=== PATIENT | female | born 1965 | race Caucasian/White ===

== ENCOUNTER 2021-11-29 15:36 | Emergency (ER) | payer OTHER, SELFPAY ==
--- NOTE | ~2021-11-29 | XR_ITS ---
EXAMINATION: XR FOOT, RIGHT CLINICAL INFORMATION: Heel pain. COMPARISON: None TECHNIQUE: AP, lateral, and oblique views of the right foot. FINDINGS: There is a small calcaneal heel enthesophyte. No visible acute fracture, dislocation or subluxation seen. The ankle mortise and subtalar joints are normal. The soft tissues are normal. XR/XR foot RT min 3V IMPRESSION: Small calcaneal heel enthesophyte. No visible acute fracture, dislocation or soft tissue abnormality.
[2021-11-29 15:40] VITALS: BP 130/64; PULSE 75; RESP 18; TEMP 36.4; O2SAT 97; BMI 38.7
--- NOTE | 2021-11-29 16:24 | ED.GENADULT ---
HPI - General Adult General Chief complaint: Recheck/Abnormal Lab/Rx Stated complaint: glass in right foot Time Seen by Provider: 11/29/21 16:11 Source: patient Mode of arrival: ambulatory Limitations: no limitations History of Present Illness HPI narrative: Patient is a 56 year old female presenting to the emergency department today with possible retained glass in her right heel. Patient states that her daughter broke a crock pot last month and she stepped on a glass piece. Patient states that she went and had a pedicure and they were able to get most of it out but she states that she can feel some in her heel still. Patient denies any dizziness, lightheadedness, abdominal pain, nausea, vomiting, fever, chills, blurry vision, double vision, loss of vision, chest pain, difficulty breathing, shortness of breath, back pain, night sweats, pain with urination, increased urinary frequency, increased urinary urgency, blood in her urine or stool, syncope or a near syncopal episode, bowel incontinence, bladder incontinence, bowel retention, bladder retention, or any other complaints at this time. Onset (ago): month(s) (1) Location: right and lower extremity (foot) Radiation: non-radiation Severity: mild Severity scale (1-10): 2 Quality: aching Pain Consistency: intermittent and other (only when walking on it) Relieving factors: none Exacerbating factors: movement Associated symptoms: denies other symptoms Treatments prior to arrival: none Related Data Allergies Allergy/AdvReac Type Severity Reaction Status Date / Time erythromycin base Allergy Unknown UNKNOWN Unverified 12/08/19 16:22 [ERYTHROMYCIN BASE] Review of Systems Constitutional: Constitutional: Reports no additional constitutional complaints, Denies chills, Denies fever(s) and Denies night sweats Eyes: Eyes: Reports no additional eye complaints, Denies blurry vision, Denies change in vision, Denies diplopia, Denies eye discharge, Denies loss of vision and Denies eye pain ENT: Denies dizziness Cardiovascular: Cardiovascular: Reports no additional cardiovascular complaints, Denies chest pain, Denies lightheadedness, Denies Loss of Consciousness and Denies dyspnea Respiratory: Respiratory: Reports no additional respiratory complaints and Denies dyspnea Gastrointestinal: Gastrointestinal: Reports no additional gastrointestinal complaints, Denies abdominal pain, Denies melena, Denies hematochezia, Denies change in bowel habits and Denies change in stool character Genitourinary: Genitourinary: Denies hematuria, Denies urinary frequency, Denies dysuria, Denies urinary incontinence, Denies urinary hesitancy and Denies urinary urgency Musculoskeletal: Musculoskeletal: Reports no additional musculoskeletal complaints, Denies numbness and Denies tingling Comments: right foot pain Neurologic: Denies dizziness, Denies loss of vision, Denies numbness and Denies tingling Psychiatric: Psychiatric: Reports no additional psychiatric complaints Endocrine: Endocrine: Reports no additional endocrine complaints Hematologic/Lymphatic: Hematologic/Lymphatic: Reports no additional hematologic/lymphatic complaints Allergic/Immunologic: Allergic/Immunologic: Reports no additional allergic/immunologic complaints PMFSH Past Medical History Attestation statement: The following information was validated with the patient. Source: old records reviewed Physical Exam ED Vital Signs: Vital Signs - 24 hr 11/29/21 15:40 Temperature 97.6 F Pulse Rate 75 Respiratory Rate 18 Blood Pressure 130/64 Pulse Oximetry 97 Oxygen Delivery Method Room Air BMI result Body Mass Index 38.7 Const General: cooperative, no acute distress, alert and awake Nutritional Appearance: well nourished Orientation/consciousness: patient oriented x3 Limitations: no limitations HENMT Head: Yes normal to inspection and Yes atraumatic Ears: hearing grossly normal bilaterally and external ears normal General nose exam: Normal external nose present, no nasal discharge noted and no epistaxis Face and sinus: Yes normal facial exam, No abrasion and No laceration Mouth: Normal oral and palatal mucosa present, no drooling and no muffled voice Eyes General: appearance normal, both eyes and all related structures Periorbital: periorbital findings normal Eyelids: Yes eyelids normal Conjunctivae: conjunctivae normal Pupils: Equal, round and reactive pupils present EOM: EOMs intact bilaterally Neck Neck: Yes normal visual inspection, Yes full ROM and Yes no lymphadenopathy Chest Chest palpation & inspection: normal inspection of the chest Resp Effort & Inspection: normal respiratory effort and able to speak in complete sentences Auscultation: clear to auscultation bilaterally Cardio Rate: regular rate Rhythm: regular rhythm GI Inspection: Yes normal to inspection Neuro General: patient oriented x3 and moves all extremities Cranial nerves: Yes Equal, round and reactive pupils present Cognition (Neuro): normal cognition Motor exam (neuro): 5/5 motor strength present throughout Sensory Exam: Normal double simultaneous stimulation for sensation Coordination: [id number] test normal Extrem General: Yes normal to inspection, Yes full ROM and Yes capillary refill normal Psych Appearance: grossly normal Mental Status: mental status grossly normal Affect: normal affect Attitude: cooperative Thought process: Normal thought process present Thought content: Normal thought content present Insight: Good insight present (Psych) Medical Decision Making MDM Narrative Medical decision making narrative: Patient is a 56 year old female presenting to the emergency department today with possible retained glass to her right heel. Patient's physical exam was unremarkable. Patient's right foot x-ray showed no acute process, no retained foreign body. I explained my physical exam findings as well as all test results to the patient. I answered all questions asked by the patient. I stressed the importance of the patient taking her medication as prescribed. I stressed the importance of the patient following up with her primary care provider and a general surgeon. I stressed the importance of the patient returning to the emergency department immediately if her symptoms were to worsen or if she were to develop any dizziness, shortness of breath, difficulty breathing, chest pain, blurry vision, loss of vision, nausea, vomiting, abdominal pain, fever, chills, back pain, or any other complaints. Patient verbalized agreement and understanding with this treatment plan and discharge. Medical Records Medical records reviewed: Yes I reviewed the patient's medical records. Imaging Data Right foot x-ray: Attestation: I personally reviewed and interpreted this imaging study as follows: My impression: No acute process. Radiologist's impression: EXAMINATION: XR FOOT, RIGHT CLINICAL INFORMATION: Heel pain.? COMPARISON: None? TECHNIQUE: AP, lateral, and oblique views of the right foot. FINDINGS: There is a small calcaneal heel enthesophyte. No visible acute fracture, dislocation or subluxation seen. The ankle mortise and subtalar joints are normal. The soft tissues are normal.? XR/XR foot RT min 3V IMPRESSION: Small calcaneal heel enthesophyte. No visible acute fracture, dislocation or soft tissue abnormality. Dictated By: Jas Kerr MD Signed By: Electronically signed by Jas Kerr MD 11/29/21 8470 Discharge Plan Discharge Clinical Impression: Foreign body (FB) in soft tissue Patient Disposition: Home, Self-Care Instructions: Soft Tissue Foreign Body (ED) Additional Instructions: Follow up with your primary care provider and a general surgeon. Return to the emergency department immediately if your symptoms worsen or if you develop any dizziness, shortness of breath, difficulty breathing, chest pain, blurry vision, loss of vision, nausea, vomiting, abdominal pain, fever, chills, back pain, or any other complaints. [place]: [facility] [place] [facility] [place] Group] (Call to establish and follow up with a general surgeon. ) Tariq Lopes MD [Primary Care Provider] - Print Language: Macedonian
== END 2021-11-29 16:50 | disposition home or self-care (01) ==
LOC: HO.ED 16:49
PROVIDERS: Emergency Provider Internal Medicine; PCP Internal Medicine
DX: M79.671 Pain in right foot (principal)
CPT/HCPCS: 73630; 99282; 99283

== ENCOUNTER 2022-01-13 20:07 | Emergency (ER) | payer OTHER, SELFPAY ==
--- NOTE | 2022-01-13 | ECG_ITS ---
Test Reason : ABNORMAL LABS Blood Pressure : / mmHG Vent. Rate : 068 BPM Atrial Rate : 068 BPM P-R Int : 156 ms QRS Dur : 076 ms QT Int : 400 ms P-R-T Axes : 034 007 029 degrees QTc Int : 425 ms Normal sinus rhythm Normal ECG When compared with ECG of 04-MAR-2019 17:53, No significant change was found Referred By: Generic ED Physician Electronically Signed By:MARYANN VEGA MD
[2022-01-13 20:58] VITALS: BP 136/88; PULSE 77; RESP 20; TEMP 36.8; O2SAT 97; BMI 38.6
[2022-01-13 21:17] LABS: Hematocrit 38.9 % (37.0-47.0); Hemoglobin 12.7 g/dl (12.0-16.0); Mean Corpuscular HGB Conc 32.6 g/dl (31.0-35.0); Mean Corpuscular Hemoglobin 31.4 pg (27.0-33.0); Mean Corpuscular Volume 96.3 fL (80.0-98.0); Mean Platelet Volume 9.4 fL (9.4-12.3); Platelet Count 327 X10*3/uL (160-400); Red Blood Count 4.04 X10*6/uL (4.20-5.50); White Blood Count 9.7 X10*3/uL (4.8-10.8)
[2022-01-13 21:40] LABS: Alanine Aminotransferase 31 U/L (0-31); Albumin Level 4.6 g/dL (3.5-5.0); Alkaline Phosphatase 114 U/L (39-117); Anion Gap 17 (12-20); Aspartate Amino Transferase 17 U/L (5-31); Bilirubin Total 0.3 mg/dL (0.0-1.0); Blood Urea Nitrogen 23 mg/dL (9-16); Calcium 9.7 mg/dL (8.4-10.2); Carbon Dioxide 26 mmol/L (22-29); Chloride 104 mmol/L (96-108); Estimated Glomerular Filt Rate 54; Glucose Random 101 mg/dL (60-115); Potassium 4.9 mmol/L (3.3-5.1); Sodium 142 mmol/L (135-145); Total Protein 7.6 g/dL (6.5-8.0)
--- NOTE | 2022-01-13 23:28 | ED_ITS ---
HPI - Recheck/Abnormal Lab/Rx General Chief Complaint: Recheck/Abnormal Lab/Rx Stated Complaint: abnormal labs per dr Time Seen by Provider: 01/13/22 23:28 Source: patient Mode of arrival: ambulatory Limitations: no limitations History of Present Illness HPI narrative: 56 yo female with history of Parkinson's disease, spontaneous coronary artery dissection who is presenting for evaluation of elevated potassium on routine blood work today. She was called by her PCP and told her potassium was 6.1 and to come to the hospital for evaluation. She has never had a high potassium before. She is not on spironolocatone or lisinopril. No new meds. She denies muscle cramps or aches. Her PCP exaplined that it may be falsely elevated due to hemolysis but it is important to get it rechecked CAPRICE. complaint: abnormal lab Initial visit (ago): hour(s) Returns today for: called because of abnormal lab/test Description of abnormal result: K 6.1 Symptoms since prior visit: no new symptoms Associated symptoms: none Related Data Allergies Allergy/AdvReac Type Severity Reaction Status Date / Time erythromycin base Allergy Unknown UNKNOWN Unverified 12/08/19 16:22 [ERYTHROMYCIN BASE] Review of Systems Review of Systems: Constitutional: No Fever, No Chills Cardiovascular: No Chest Pain, No SOB Respiratory: No Cough, No Sputum Gastrointestinal: No Nausea, No Vomiting, No Diarrhea, No abdominal Pain Musculoskeletal: No joint pain, No Myalgias Skin: No Skin Lesions, No rash Neuro: No Weakness, No Numbness Psych: + Anxiety/Panic, No Depression PMFSH Social History Social History Advance Directives: No Physical Exam Vital Signs: Vital Signs: Last Vital Signs Temp 98.3 F 01/13/22 20:58 Pulse 77 01/13/22 20:58 Resp 20 01/13/22 20:58 BP 136/88 01/13/22 20:58 Pulse Ox 97 01/13/22 20:58 O2 Del Method 01/13/22 20:58 BMI result Body Mass Index 38.6 Appearance: Alert. Oriented X3. No acute distress. Eyes: Pupils equal, round and reactive to light. ENT: Pharynx normal. Neck: Normal inspection. Neck supple. CVS: Normal heart rate and rhythm. Pulses normal. Respiratory: No respiratory distress. Breath sounds normal. Skin: Skin warm and dry. Normal skin color. Normal skin turgor. No rashes. Extremities: No lower extremity edema. Neuro: Oriented X 3. Slightly shuffling gait. Nonfocal. Course Course Course Narrative: 56-year-old female presents to the ER for evaluation of hyperkalemia on outpatient labs today. Repeat lab work done shows normalization of her pot assium to a level of 4.9. She is not on any medications that would precipitate hyperkalemia. Her renal function is normal. At this time comfortable discharge home with plan to follow back up with her PCP. Results discussed with the patient who agrees with plan.. MDM - Recheck/Abnormal Lab/Rx Lab Data Result diagrams: 01/13/22 21:05 01/13/22 21:05 Labs: Lab Results 01/13/22 01/13/22 Range/Units 21:05 21:05 WBC 9.7 (4.8-10.8) X10*3/uL RBC 4.04 L (4.20-5.50) X10*6/uL Hgb 12.7 (12.0-16.0) g/dl Hct 38.9 (37.0-47.0) % MCV 96.3 (80.0-98.0) fL MCH 31.4 (27.0-33.0) pg MCHC 32.6 (31.0-35.0) g/dl RDW 13.0 (11.0-16.0) % Plt Count 327 (160-400) X10*3/uL MPV 9.4 (9.4-12.3) fL Absolute Nucleated RBC 0.000 (0.0-0.012) X10*3/uL Nucleated RBC % (auto) 0.0 (0.0-0.2) /100WBC Sodium 142 (135-145) mmol/L Potassium 4.9 (3.3-5.1) mmol/L Chloride 104 (96-108) mmol/L Carbon Dioxide 26 (22-29) mmol/L Anion Gap 17 (12-20) BUN 23 H (9-16) mg/dL Creatinine 1.05 (0.5-1.4) mg/dL Estim Creat Clear Calc 67.0 Estimated GFR 54 Random Glucose 101 (60-115) mg/dL Calcium 9.7 (8.4-10.2) mg/dL Total Bilirubin 0.3 (0.0-1.0) mg/dL AST 17 (5-31) U/L ALT 31 (0-31) U/L Alkaline Phosphatase 114 (39-117) U/L Total Protein 7.6 (6.5-8.0) g/dL Albumin 4.6 (3.5-5.0) g/dL Discharge Plan Discharge Clinical Impression: Abnormal laboratory test Patient Disposition: Home, Self-Care Instructions: Normal Exam (ED) Additional Instructions: Your potassium today was normal at 4.9. No need for any treatment or intervention. Follow back up with your doctor as needed. If you develop new or worsening symptoms call 911 or come back to the ER for further evaluation. Interventions: ED Discharge Assessment Last Done: 01/13/22 23:37 Discharge Date/Time: 01/13/22 23:38
--- NOTE | 2022-01-13 23:35 | PC.NURSE ---
pt discharge by provider.
== END 2022-01-13 23:38 | disposition home or self-care (01) ==
PROVIDERS: Emergency Provider Student in an Organized Health Care Education/Training Program; PCP Internal Medicine
DX: Z71.1 Person with feared health complaint in whom no diagnosis is made (principal); R88.8 Abnormal findings in other body fluids and substances
CPT/HCPCS: 36415; 80053; 85027; 93005; 99282; 99283

== ENCOUNTER 2023-10-19 14:15 | Outpatient (AMB) | payer OTHER, SELFPAY ==
--- NOTE | 2023-10-19 15:22 | AM.OFFWIN_ITS ---
Intake Vital Signs 10/19/23 15:24 Height 5 ft 3 in Weight 232 lb BMI 41.1 BP 114/70 Blood Pressure Location Rt radial Position Sitting Pulse 84 Pulse Source Pulse Oximeter Temp 98.1 F Temp Source Oral Pulse Oximetry (%) 96 Oxygen Delivery Method Room Air Intake Visit Reasons: Bee sting left Arm Intake Note: pt c/o white faced hornet sting LT arm Patient Tobacco Use Status: Never used Tobacco Allergies erythromycin base [ERYTHROMYCIN BASE] Allergy (Unknown, Verified 10/19/23 15:23) UNKNOWN Do you need a note to return to daycare/school/sports/work: No HPI Bee sting left Arm HPI Details This note is constructed using voice recognition software. While every effort has been made to ensure accuracy, stretching press operator errors may have been included. The patient is a 58 year old female who presents to the clinic today with bee- sting which occurred yesterday to her left forearm. She reports that she had 1 single sting, and she did treat this with Benadryl as she is allergic to bees, however she developed an area that was red, warm, raised and spreading. She de nies shortness of breath, or any sensation of swelling in her mouth. [facility] [place] Social History Patient Tobacco Use Status: Never used Tobacco Review of Systems Const All systems reviewed & are unremarkable except as noted in HPI and below Physical Exam Vital Signs: Last Vital Signs Temp 98.1 F 10/19/23 15:24 Pulse 84 10/19/23 15:24 BP 114/70 10/19/23 15:24 Pulse Ox 96 10/19/23 15:24 Oxygen Delivery Method Room Air 10/19/23 15:24 BMI result Body Mass Index 41.1 Const General: cooperative, healthy appearing, comfortable, no acute distress and alert Orientation/consciousness: patient oriented x3 Limitations: no limitations HEENT Head: Yes normal to inspection and Yes normocephalic Ears: hearing grossly normal bilaterally General nose exam: Normal external nose present Face and sinus: Yes normal facial exam and Yes sinuses nontender Mouth: Normal oral and palatal mucosa present and tongue normal Teeth and gingiva: dentition normal Throat: Yes posterior oropharynx normal Neck Neck: Yes normal visual inspection, Yes full ROM and Yes no lymphadenopathy Resp Effort & Inspection: normal respiratory effort and able to speak in complete sentences Auscultation: clear to auscultation bilaterally Cardio Jugular venous distension: no JVD Palpation: normal PMI Rate: regular rate Heart sounds: S1 normal heart sound present, S2 normal heart sound present, no click, no gallops, no murmurs and no rubs Skin Other: Left lower arm area of erythema, raised, warm approximately 25 x 15 cm. General skin exam: elasticity normal and turgor normal Neuro General: patient oriented x3 Psych Appearance: grossly normal Mental Status: mental status grossly normal Speech and movement: Normal speech and movement present Affect: normal affect Assessment & Plan Assessment & Plan (1) Bee sting reaction: Code(s): T63.441A - Toxic effect of venom of bees, accidental (unintentional), initial encounter Qualifiers: Encounter type: initial encounter Injury intent: accidental or unintentional Qualified Code(s): T63.441A - Toxic effect of venom of bees, accidental (unintentional), initial encounter Plan: Patient has allergy to bee sting, however no signs of any anaphylaxis present today. Advised patient to follow with PCP for consideration of carrying of EpiPen given her reactions in the past. Continue with Benadryl or antihistamine. (2) Cellulitis: Code(s): L03.90 - Cellulitis, unspecified Qualifiers: Laterality: left Site of cellulitis: extremity Site of cellulitis of extremity: upper extremity Qualified Code(s): L03.114 - Cellulitis of left upper limb Plan: Following bee-sting. Antimicrobial therapy prescribed. Skin pen used outlined area. Advised patient to follow up with any worsening including 2 finger widths spread beyond outlined area, especially after 48 hours of antibiotic therapy, as this could indicate need for IV antibiotics. Plan See above for full details and plan. Medications: New sulfamethoxazole-trimethoprim 800-160 mg (Bactrim DS) 1 tab PO BID 14 tabs 0RF 7 days Coding Level of Care Code Est Pt Level 4 (79839) Diagnoses Bee sting reaction, accidental or unintentional, initial encounter T63.441A Encounter type: initial encounter Injury intent: accidental or unintentional Cellulitis of left upper extremity L03.114 Laterality: left Site of cellulitis: extremity Site of cellulitis of extremity: upper extremity
[2023-10-19 15:24] VITALS: BP 114/70; PULSE 84; TEMP 36.7; O2SAT 96; BMI 41.1
== END 2023-10-19 15:46 | disposition home or self-care (01) ==
PROVIDERS: PCP Internal Medicine; Visit Provider Registered Nurse
DX: T63.441A Toxic effect of venom of bees, accidental (unintentional), initial encounter (principal); L03.114 Cellulitis of left upper limb
CPT/HCPCS: 99214

== ENCOUNTER 2023-10-20 04:46 | Emergency (ER) | payer OTHER, SELFPAY ==
[2023-10-20 04:54] VITALS: BP 110/67; PULSE 77; RESP 20; TEMP 36.6; O2SAT 96; BMI 40.7
[2023-10-20 05:04] VITALS: BP 103/65; PULSE 74; RESP 17; TEMP 36.5; O2SAT 93
--- NOTE | 2023-10-20 05:16 | ED.EXTPRO ---
HPI - Extremity Problem General Chief complaint: Extremity Problem Stated complaint: yellow jacket sting/swelling Time Seen by Provider: 10/20/23 05:02 History of Present Illness HPI Narrative: Patient is a 58-year-old female was stung by a yellow jacket on Thursday. Subsequently the right forearm swelled up. Was seen at urgent Care prescribed Bactrim. Patient took 2 doses of Bactrim and the swelling continue. Now is about an inch off from the margin delineate it earlier. There is no fever no chills no systemic complaints. Patient denies any chest pain. Came to the ED because of worsening symptoms. Patient is not on any immunosuppressants. Related Data Home Medications ?Medication ?Instructions ?Recorded ?Confirmed amlodipine 5 mg tablet 5 mg PO DAILY 10/19/23 atorvastatin 40 mg tablet 40 mg PO DAILY 10/19/23 bupropion HCl 150 mg 24 hr tablet, 300 mg PO DAILY 10/19/23 extended release carbidopa 25 mg-levodopa 100 mg tab PO 10/19/23 tablet escitalopram oxalate 10 mg tablet mg PO 10/19/23 metoprolol tartrate 25 mg tablet 25 mg PO DAILY 10/19/23 Previous Rx's ?Medication ?Instructions ?Recorded sulfamethoxazole 800 1 tab PO BID 7 days #14 tabs 10/19/23 mg-trimethoprim 160 mg tablet (Bactrim DS) Allergies Allergy/AdvReac Type Severity Reaction Status Date / Time erythromycin base Allergy Unknown UNKNOWN Verified 10/20/23 04:55 [ERYTHROMYCIN BASE] Review of Systems Review of Systems: Positive history of hypertension, history of Parkinson's, anxiety Yes all other systems are reviewed and are negative COUNT INCLUDES THE [facility] Past Medical History Attestation statement: The following information was validated with the patient. Social History Social History Patient Tobacco Use Status: Never used Tobacco Smoked in Last 30 Days: No Use of substances other than those prescribed or required for medical reasons: No Advance Directives: No Patient : No Physical Exam Vital Signs: Vital Signs: Last Vital Signs Temp 97.7 F 10/20/23 05:04 Pulse 74 10/20/23 05:04 Resp 17 10/20/23 05:04 BP 103/65 10/20/23 05:04 Pulse Ox 93 10/20/23 05:04 O2 Del Method Room Air 10/20/23 05:04 BMI result Body Mass Index 40.7 Appearance: Alert. Oriented X3. No acute distress. Eyes: Pupils equal, round and reactive to light. ENT: Pharynx normal. Neck: Normal inspection. Neck supple. No lymph nodes noted. No crepitus CVS: Normal heart rate and rhythm. Pulses normal. Normal S1 and S2 Respiratory: No respiratory distress. Breath sounds normal. No Wheezing. No rales Abdomen: Soft and nontender. No rigidity. No distention. good BS x4 Skin: Positive erythema warm to touch in the right forearm. About an inch outside the skin marker. There is no mucosal membrane involvement. There is no lymphangitis Extremities: No lower extremity edema. Neurovascular intact to all extremities. No Lacerations. No Rash Neuro: Oriented X 3. No motor deficit. No sensory deficit. Moving all extermities. No slurred speech Medical Decision Making Medical Decision Making MDM Narrative: Well-appearing no acute distress likely an allergic reaction already on Keflex only took 2 doses slightly beyond the margin of the redness. Will need to be closely follow on an outpatient basis. Elected not to give steroids. Currently in stable condition no systemic complaints. Differential Diagnosis Differential Diagnoses: The differential diagnosis associated with the presentation includes Cellulitis versus allergic reaction Chronic Conditions Patient?s care impacted by: Hypertension Parkinson's, anxiety Discharge Plan Discharge Clinical Impression: Cellulitis, Allergic reaction Patient Disposition: Home, Self-Care Instructions: General Allergic Reaction (ED) Prescriptions: No Action bupropion HCl 150 mg tablet extended release 24 hr 300 mg PO DAILY carbidopa-levodopa 25-100 mg tablet PO escitalopram oxalate 10 mg tablet PO atorvastatin 40 mg tablet 40 mg PO DAILY amlodipine 5 mg tablet 5 mg PO DAILY metoprolol tartrate 25 mg tablet 25 mg PO DAILY sulfamethoxazole-trimethoprim [Bactrim DS] 800-160 mg tablet 1 tab PO BID 7 Days Qty: 14 0RF Referrals: Abhijit Vanessa MD [Primary Care Provider] - 10/22/23 Print Language: [place] Leone[place]
[2023-10-20 05:21] VITALS: BP 103/65; PULSE 74; RESP 17; TEMP 36.5; O2SAT 93
== END 2023-10-20 05:26 | disposition home or self-care (01) ==
PROVIDERS: Emergency Provider Emergency Medicine Emergency Medical Services; PCP Internal Medicine
DX: L03.113 Cellulitis of right upper limb (principal)
CPT/HCPCS: 99282; 99284

== ENCOUNTER 2023-12-19 10:55 | Outpatient (AMB) | payer OTHER, SELFPAY ==
[2023-12-19 12:42] VITALS: BP 110/60; PULSE 71; TEMP 36.8; O2SAT 100; BMI 40.6
--- NOTE | 2023-12-19 12:42 | AM.OFFWIN_ITS ---
Intake Vital Signs 12/19/23 12:42 Height 5 ft 3 in Weight 229 lb BMI 40.6 BP 110/60 Blood Pressure Location Rt brachial Position Sitting Pulse 71 Pulse Source Pulse Oximeter Temp 98.2 F Temp Source Oral Pulse Oximetry (%) 100 Oxygen Delivery Method Room Air Intake Visit Reasons: EP Cold symptoms Intake Note: Pt is here today c/o bilateral ear fluid builded up Patient Tobacco Use Status: Never used Tobacco Allergies erythromycin base [ERYTHROMYCIN BASE] Allergy (Unknown, Verified 12/19/23 12:43) UNKNOWN bactrim Adverse Reaction (Uncoded 12/19/23 12:44) Nausea HPI EP Cold symptoms HPI Details Patient is a 58-year-old female who is about 3 weeks out from upper respiratory infection symptoms that [place], and included chills, fever, an upper respiratory infection symptoms. She did not check for COVID at the time. She subsequently flew home, and had discomfort in her ears when the plane landed. Soon after, she started to develop bilateral ear fullness, and has decreased hearing. She denies pain to the ears, discharge, fever or chills, headache or dizziness/vertigo, weakness, myalgias or malaise, nausea vomiting or diarrhea, postnasal drip or cough, or other significant associated symptoms. [facility], [facility] Social History Patient Tobacco Use Status: Never used Tobacco Review of Systems Const All systems reviewed & are unremarkable except as noted in HPI and below Physical Exam Vital Signs: Last Vital Signs Temp 98.2 F 12/19/23 12:42 Pulse 71 12/19/23 12:42 BP 110/60 12/19/23 12:42 Pulse Ox 100 12/19/23 12:42 Oxygen Delivery Method Room Air 12/19/23 12:42 BMI result Body Mass Index 40.6 HEENT Head: Yes normal to inspection, Yes normocephalic and Yes atraumatic Ears: hearing grossly normal bilaterally, external ears normal, EAC's normal, mastoids normal, no periauricular adenopathy and TM abnormal with fluid behind the TM; not bulging, not erythematous, with no loss of landmarks and not perforated General nose exam: Normal external nose present and Normal nares present Throat: Yes tonsils normal, Yes uvula midline, No peritonsillar mass and No postnasal drainage Neck Lymphatic: no lymphadenopathy noted Assessment & Plan Assessment & Plan (1) Serous otitis media: Code(s): H65.90 - Unspecified nonsuppurative otitis media, unspecified ear Qualifiers: Chronicity: acute Laterality: bilateral Recurrence: non-recurrent Qualified Code(s): H65.03 - Acute serous otitis media, bilateral Plan She has bilateral serous otitis, and will trial fluticasone as her has some at home, as well as high dose of Motrin for a few days. We discussed the risk of bleeding, GI FX, and cardiac issues with NSAIDs. She will follow up as needed if symptoms persist or worsen despite [id number] medication. I told her how this could turn into an otitis media. We discussed possibly needing an oral course of steroids, and even referral to ENT at that point. Coding Level of Care Code Est Pt Level 4 (79280) Diagnoses Non-recurrent acute serous otitis media of both ears H65.03 Chronicity: acute Laterality: bilateral Recurrence: non-recurrent
== END 2023-12-19 14:11 | disposition home or self-care (01) ==
PROVIDERS: PCP Internal Medicine; Visit Provider Physician Assistant Medical
DX: H65.03 Acute serous otitis media, bilateral (principal)

== ENCOUNTER → 2023-12-19 10:55 | Outpatient (BNVA) | payer OTHER, SELFPAY | PROVIDERS: PCP Internal Medicine | DX: H65.03 Acute serous otitis media, bilateral (principal) ==

== ENCOUNTER 2025-02-22 12:51 | Outpatient (REF) | payer OTHER, SELFPAY ==
--- NOTE | ~2025-02-22 | XR_ITS ---
EXAMINATION: XR ANKLE, RIGHT CLINICAL INFORMATION: ANKLE PAIN R/O ARTHRITIS COMPARISON: None available. TECHNIQUE: AP, lateral, and mortise views of the right ankle. FINDINGS: No acute fracture, dislocation or suspicious bony lesion is identified. There are degenerative changes in the lateral aspect of the talar body. No talar dome OCD. Ankle mortise is congruent. Ankle soft tissue swelling, more prominent laterally. Small plantar calcaneus spur. No radiopaque foreign body. XR/XR ankle RT min 3V IMPRESSION: No radiographic evidence of acute osseous findings. Degenerative changes in the lateral aspect of the talar body. Electronically signed by: Kashif Dennis MD 02/23/2025 01:17 PM [facility]
--- OUTSIDE RECORDS SUMMARY | 2025-02-22 15:17 | XMS_ITS | Clinical Summary ---
Author Organization [facility] Address [address] [facility] [place] [address] Phone Care Team Providers Care Associate Artistic Director Name Role Phone Pcp, Unknown Primary Care Provider Unavailabl e Social History Tobacco Use Types Packs/Day Years Used Date Smoking Tobacco: Never Assessed Education Answer Date Recorded Are you interested in more education? Not on adonis e 07/18/2022 Are you concerned about learning? Not on file 07/18/2022 No 07/18/2022 No 07/18/2022 Digital Access Answer Date Recorded No 08/19/2022 No 08/19/2022 Reliable internet access at home? Not on file 08/19/2022 Device with a working camera? Not on file Comments Unknown Sex and Gender Information Value Date Recorded Sex Assigned at Not on file Legal Sex Female 8:28 AM EST Gender Identity Not on file Sexual Orientation Not on file Plan of Treatment Not on file Medical Devices Not on file Insurance [facility] H[facility] Care Teams Associate Artistic Director Relationship Specialty Start Date End Date Pcp, Unknown PCP - General 04/15/19 Additional Source Comments The information contained in this document represents components of the legal health record. It is not the complete legal health record.[facility]
--- OUTSIDE RECORDS SUMMARY | 2025-02-22 15:17 | XMS_ITS | Encounter Summary ---
Author Organization [facility] Address [address] [place] [address] Care Team Providers Care Catering Barista Name Role Phone Abhijit Vanessa MD Primary Care Provider [phone] Star Martino ANIMAL RIDE MANAGER Unavailable [phone] Ashia Lee MD Unavailable [phone] Encounter Details Date Type Department Care Team (Late st Contact Info) Description 08/22/2022 Scanned Document [facility] Neurology [address] [phone] Star Martino, ANIMAL RIDE MANAGER [address] [address] Social History Tobacco Use Types Packs/Day Years Used Date Smoking Tobacco: Never Smokeless Tobacco: Never Alcohol Use Standard Drinks/Week Comments Not Currently 0 (1 standard drink = 0.6 oz pur e alcohol) Comments No Sex and Gender Information Value Date Recorded Sex Assigned at Not on file Legal Sex Female 9:17 AM EDT Gender Identity Not on file Sexual Orientation Not on file COVID-19 Exposure Response Date Recorded In the last 10 days, have yo u been in contact with someone who was confirmed or suspected to have Coronavirus/COVID-19? No / Unsure 08/12/2022 8:27 AM EDT documented as of this encounter Plan of Treatment Upcoming Encounters Date Type Department Care Team (Late st Contact Info) Description 04/03/2025 1:10 PM EST Office Visit [facility] Neurology [address] [phone] Star Martino APRN [address] [address] 08/22/2025 1:50 PM EDT Office Visit [facility] Neurology [place] [address] [address] Star Martino APRN 35 [facility] [address] [place] [address] documented as of this encounter Visit Diagnoses Not on filedocumented in this encounter Care Teams Catering Barista Relationship Specialty Start Date End Date Abhijit Vanessa MD [address] [place] [address] PCP - General Internal Medicine 08/12/22 Star Martino APRN [address] [address] Nurse Practitioner Neurology 01/19/24 Ashia Lee MD [address] [place] [address] Neurology 01/19/24 documented as of this encounter
--- OUTSIDE RECORDS SUMMARY | 2025-02-22 15:17 | XMS_ITS | Encounter Summary ---
Author Organization [facility] Address [address] [place] [address] Care Team Providers Care Oncology Navigator Name Role Phone Tariq Lopes MD Primary Care Provider [phone] Abhijit Vanessa MD Primary Care Provider [phone] Star Martino SCRAP BREAKER Unavailable [phone] Ashia Lee MD Unavailable [phone] Encounter Details Date Type Department Care Team (Late st Contact Info) Description 01/23/2021 Scanned Document [facility] Neurology [address] [phone] Star Martino, SCRAP BREAKER 35 [facility] [address] [place] [address] Social History Tobacco Use Types Packs/Day [...] on file Sexual Orientation Not on file documented as of this encounter Plan of Treatment Upcoming Encounters Date Type Department Care Team (Late Contact Info) Description 04/03/2025 1:10 PM EST Office Visit [facility] Neurology [address] [place] [phone] Star Martino, SCRAP BREAKER 35 [facility] [address] [place] [address] 08/22/2025 1:50 PM EDT Office Visit [facility] Neurology [place] 35 [facility] 6 [place] [address] Star Martino APRN 35 [facility] 6 [place] [address] documented as of this encounter Visit Diagnoses Not on filedocumented in this encounter Care Teams Oncology Navigator Relationship Specialty Start Date End Date Tariq Lopes MD [address] [place] [address] [address] [place] [address] PCP - General Internal Medicine 12/21/18 08/11/22 Abihjit Vanessa MD [address] [place] [address] [place] [address] PCP - General Internal Medicine 08/12/22 Star Martino APRN [address] [place] [address] 6 [place] [address] Nurse Practitioner Neurology 01/19/24 Ashia Lee MD 35 [facility] 6 [place] [address] Neurology 01/19/24 documented as of this encounter
--- OUTSIDE RECORDS SUMMARY | 2025-02-22 15:17 | XMS_ITS | Encounter Summary ---
Author Organization [facility] Address [address] [place] [address] Care Team Providers Care Associate Music Professor Name Role Phone Tariq Lopes MD Primary Care Provider [phone] Abhijit Vanessa MD Primary Care Provider [phone] Star Martino OFFICE SERVICES CLERK Unavailable [phone] Ashia Lee MD Unavailable [phone] Encounter Details Date Type Department Care Team (Late st Contact Info) Description 01/28/2021 Scanned Document [facility] Neurology [address] [phone] Star Martino, OFFICE SERVICES CLERK 35 [facility] [address] [place] [address] Social History Tobacco Use Types Packs/Day [...] Description 04/03/2025 1:10 PM EST Office Visit [facility] Neurology [address] [place] [phone] Star Martino, OFFICE SERVICES CLERK 35 [facility] [address] [place] [address] 08/22/2025 1:50 PM EDT Office Visit [facility] Neurology [place] 35 [facility] 6 [place] [address] Star Martino APRN 35 [facility] 6 [place] [address] documented as of this encounter Visit Diagnoses Not on filedocumented in this encounter Care Teams Associate Music Professor Relationship Specialty Start Date End Date Tariq Lopes MD [address] [place] [address] [address] [place] [address] PCP - General Internal Medicine 12/21/18 08/11/22 Abhijit Vanessa MD [address] [place] [address] [place] [address] PCP - General Internal Medicine 08/12/22 Star Martino APRN [address] [place] [address] 6 [place] [address] Nurse Practitioner Neurology 01/19/24 Ashia Lee MD 35 [facility] 6 [place] [address] Neurology 01/19/24 documented as of this encounter
--- OUTSIDE RECORDS SUMMARY | 2025-02-22 15:17 | XMS_ITS | Clinical Summary ---
Author Organization [facility] Address [address] [place] [address] Care Team Providers Care Securities Settlement Processor Name Role Phone Abhijit Vanessa MD Primary Care Provider [phone] Star Martino APRN Unavailable [phone] Ashia Lee MD Unavailable [phone] Allergies Active Allergy Reactions Criticality Noted Date Comments Erythromycin Hives Medium 01/03/2019 Medications atorvastatin (LIPITOR) 40 MG tablet Take 1 tablet (40 mg total) by mouth daily. 0 9 Active metoPROLOL SUCCINATE (TOPROL-XL) 50 MG 24 hr tablet Take 0.5 tablets (25 mg total) by mouth daily. 0 9 Active amLODIPine (NORVASC) 5 MG tablet Take 1 tablet (5 mg total) by mouth daily. 0 Active buPROPion (WELLBUTRIN SR) 200 MG 12 hr tabletIndications:D ysthymia,Parkinson' s disease with dyskinesia without fluctuating manifestations (HCC) Take 1 tablet (200 mg total) by mouth 2 (two) times a day in the morning and the early evening.. 180 tablet 3 5 Active FLUoxetine (PROzac) 20 MG capsule Take 1 capsule (20 mg total) by mouth. Active carbidopa-levodopa (SINEMET) 25-100 MG per tabletIndications:P arkinson's disease (HCC) Take 1 tablet by mouth 3 (three) times a day. 270 tablet 3 5 Active escitalopram (LEXAPRO) 10 MG tabletIndications:D ysthymia Take 1.5 tablets (15 mg total) by mouth daily. 45 tablet 11 Active Active Problems Problem Noted Date Diagnosed Date Foreign body (FB) in soft tissue 08/30/2024 History of cholecystectomy 08/12/202208/12 At risk for coronary artery disease 01/14/2022 08/12/2022 Class 2 obesity 08/27/2021 Hyperlipidemia 08/27/2021 Mixed anxiety depressive disorder 08/27/2021 Morbid obesity 08/27/2021 Post-void dribbling 08/27/2021 Tear of meniscus of knee 08/27/2021 Indigestion 05/06/2021 High alkaline phosphatase 11/06/2020 Macrocytosis without anemia 11/14/2019 Parkinson's disease 02/15/2019 Tubular adenoma of colon 04/21/2016 STEMI (ST elevation myocardial infarction) Essential hypertension Orthostatic hypertension Resolved Problems Problem Noted Date Diagnosed Date Resolved Date Prediabetes 08/27/2021 Coronary artery dissection 0 05/31/2019 Immunizations Immunization Administration Dates Next Due Tdap 12/22/2016 Family History Medical History Relation Name Comments Parkinsonism Mother Relation Name Status Comments Mother Social History Tobacco Use Types Packs/Day Years Used Date Smoking Tobacco: Never Smokeless Tobacco: Never Tobacco Cessation:Counseling Given: Not Answered Alcohol Use Standard Drinks/Week Comments Not Currently 0 (1 standard drink = 0.6 oz pur e alcohol) PHQ-2 Answer Date Recorded PHQ-2 Total Score 1 08/30/2024 Comments No Sex and Gender Information Value Date Recorded Sex Assigned at Not on file Legal Sex Female 9:17 AM EDT Gender Identity Not on file Sexual Orientation Not on file Last Filed Vital Signs Vital Sign Reading Time Taken Comments Blood Pressure 138/88 08/30/2024 9:15 AM EDT Pulse 77 08/30/2024 9:15 AM EDT Temperature - - Respiratory Rate 16 02/10/2022 8:00 AM EST Oxygen Saturation - - Inhaled Oxygen Concentration - - Weight 101 kg (222 lb) 08/30/2024 9:14 AM EDT Height 160 cm (5' 3 ) 08/30/2024 9:14 AM EDT Body Mass Index 39.33 08/30/2024 9:14 AM EDT Plan of Treatment Upcoming Encounters Date Type Department Care Team (Late st Contact Info) Description 04/03/2025 1:10 PM EST Office Visit [facility] Neurology [address] [place] [address] Star Martino, SAND MILLER [address] [facility] [address] [place] [address] 08/22/2025 1:50 PM EDT Office Visit [facility] Neurology [address] [place] [address] Star Martino, SAND MILLER [address] [facility] [address] [place] [address] Health Maintenance Due Date Last Done Comments Hepatitis C Virus Screening 1965 HIV Screening 1978 Hepatitis B Vaccines (1 of 3 - 19+ 3-dose series) 1984 Pneumococcal Vaccines 50+ (1 of 2 - PCV) 1984 Pap Smear (Ages 21-65) 1986 Mammogram 2005 RSV Vaccine 50 years and old er and Patients (1 - Risk 50-74 years 1-dose series) 09/30/2015 Zoster (Shingles) Vaccine (1 of 2) 09/30/2015 Influenza Vaccine 10/21/2024 COVID-19 Vaccine (6 - 2024-2 6 season) 2024 08/30/2021, 03/11/2021, 07/05/2020, Additional history exists DTaP/Tdap/Td Vaccines (2 - T d or Tdap) 12/22/2026 12/22/2016 Colonoscopy 05/24/2031 05/23/2021 Insurance [facility] Care Teams Securities Settlement Processor Relationship Specialty Start Date End Date Abhijit Vanessa MD [address] [place] [address] PCP - General Internal Medicine 08/12/22 Star Martino APRN 35 [facility] [address] [place] [address] Nurse Practitioner Neurology 01/19/24 Ashia Lee MD 35 [facility] 6 [place], [place] [id number] Neurology 01/19/24
--- OUTSIDE RECORDS SUMMARY | 2025-02-22 15:17 | XMS_ITS | Encounter Summary ---
Author Organization [facility] Address [address] [place] [address] Care Team Providers Care Mounter Clarinets Name Role Phone Tariq Lopes MD Primary Care Provider [phone] Abhijit Vanessa MD Primary Care Provider [phone] Star Martino MERCHANDISING LEAD Unavailable [phone] Ashia Lee MD Unavailable [phone] Encounter Details Date Type Department Care Team (Late st Contact Info) Description 04/07/2019 Scanned Document [facility] Neurology [address] [phone] Tiera Hayes MERCHANDISING LEAD 35 [place] [address] Social History Tobacco Use Types Packs/Day Years Used Date Smoking Tobacco: Never Smokeless Tobacco: Never Alcohol Use Standard Drinks/Week Comments Not Currently 0 (1 standard drink = 0.6 oz pur e alcohol) Comments Unknown Sex and Gender Information Value Date Recorded Sex Assigned at Not on file Legal Sex Female 9:17 AM EDT Gender Identity Not on file Sexual Orientation Not on file documented as of this encounter Plan of Treatment Upcoming Encounters Date Type Department Care Team (Late st Contact Info) Description 04/03/2025 1:10 PM EST Office Visit [facility] Neurology [address] [phone] Star Martino, MERCHANDISING LEAD [address] [address] 08/22/2025 1:50 PM EDT Office Visit [facility] Neurology [place] 35 [facility] 6 [place] [address] Star Martino APRN [address] [address] documented as of this encounter Visit Diagnoses Not on filedocumented in this encounter Care Teams Mounter Clarinets Relationship Specialty Start Date End Date Tariq Lopes MD [address] [place] [address] [address] [place] [address] PCP - General Internal Medicine 12/21/18 08/11/22 Abhijit Vanessa MD [address] [place] [address] [place] [address] PCP - General Internal Medicine 08/12/22 Star Martino APRN [address] [address] Nurse Practitioner Neurology 01/19/24 Ashia Lee MD 35 [facility] 6 [place] [address] Neurology 01/19/24 documented as of this encounter
--- OUTSIDE RECORDS SUMMARY | 2025-02-22 15:17 | XMS_ITS | Encounter Summary ---
Author Organization [facility] Address [address] [facility] [address] [place] [address] Phone Care Team Providers Care Enrollment Processor Name Role Phone Pcp, Unknown Primary Care Provider Unavailabl e Encounter Details Date Type Department Care Team (Late st Contact Info) Description 04/15/2019 Ancillary Orders [facility] [address] [place] [address] [place] [address] Haresh Aguillon MD [address] [place] [address] [email or web address] Social History Tobacco Use Types Packs/Day Years Used Date Smoking Tobacco: Never Assessed Comments Unknown Sex and Gender Information Value Date Recorded Sex Assigned at Not on file Legal Sex Female 8:28 AM EST Gender Identity Not on file Sexual Orientation Not on file documented as of this encounter Plan of Treatment Not on file documented as of this encounter Results * Holter Monitor 48 Hours (04/15/2019 11:57 AM EST) Anatomical Region Laterality Modality Heart Other Narrative 04/15/2019 3:17 PM EST Holter monitor report Indication dizziness Findings: The underlying rhythm is a sinus rhythm with an average heart rate 69 bpm, minimum heart rate 53 bpm, maximal heart rate 101 bpm. There was a single isolated PVC. There were very rare isolated premature atrial contractions. No tachyarrhythmias. Conclusion: Normal Holter monitor. Procedure Note Ludin Sierra MD - 04/15/2019 Holter monitor report Indication dizziness Findings: The underlying rhythm is a sinus rhythm with an average heart rate 69 bpm,minimum heart rate 53 bpm, maximal heart rate 101 bpm. There was a single isolated PVC. There were very rare isolated premature atrial contractions. No tachyarrhythmias. Conclusion: Normal Holter monitor. us Haresh Aguillon MD [facility] ORDERABLES F inal Result documented in this encounter Visit Diagnoses Diagnosis Dizziness Dizziness and giddiness Dizziness Dizziness and giddiness documented in this encounter Care Teams Enrollment Processor Relationship Specialty Start Date End Date Pcp, Unknown PCP - General 04/15/19 documented as of this encounter Additional Source Comments The information contained in this document represents components of the legal health record. It is not the complete legal health record.[facility]
--- OUTSIDE RECORDS SUMMARY | 2025-02-22 15:17 | XMS_ITS ---
Author Name [facility] Organization Unknown History of Medication Use Medication Directions Dispensed Refills Start Date End Date [facility] buPROPion (WELLBUTRIN SR) 200 MG 12 hr tablet Take 1 tablet (200 mg total) by mouth 2 (two) times a day in the morning and the early evening.. 07/15/2024 active escitalopram (LEXAPRO) 10 MG tablet Take 1 tablet (10 mg total) by mouth daily. 11/17/2023 12/14/2023 active carbidopa-levodopa (SINEMET) 25-100 MG per tablet Take 1.5 tablets by mouth 3 (three) times a day. 03/30/2023 10/05/2023 aborted carbidopa-levodopa (SINEMET) 25-100 MG per tablet Take 1 tablet by mouth 3 (three) times a day. 12/08/2022 09/08/2024 active carbidopa-levodopa (SINEMET) 25-100 MG per tablet TAKE 1.5 TABLETS BY MOUTH 3 TIMES A DAY. NEEDS SCORED TABS KEEP THIS MANUFACTUER 08/12/2022 02/04/2024 aborted escitalopram (LEXAPRO) 10 MG tablet TAKE 1 AND 1/2 TABLETS DAILY BY MOUTH 07/28/2022 05/06/2023 active selegiline (ELDEPRYL) 5 MG tablet TAKE 1 TABLET BY MOUTH 2 TIMES A DAY WITH MEALS. 02/03/2022 07/02/2022 active escitalopram (LEXAPRO) 10 MG tablet Take 1.5 tablets (15 mg total) by mouth daily. 12/04/2021 10/24/2024 active selegiline (ELDEPRYL) 5 MG tablet Take 1 tablet (5 mg total) by mouth 2 (two) times a day with meals. 01/28/2021 02/03/2022 active buPROPion (WELLBUTRIN XL) 150 MG 24 hr tablet TAKE 1 TABLET BY MOUTH TWICE DAILY. SWALLOW WHOLE. DO NOT CRUSH, CHEW, OR DIVIDE. 12/18/2020 02/19/2024 active amLODIPine (NORVASC) 5 MG tablet Take 5 mg by mouth daily. 02/19/2020 active ASPIRIN LOW DOSE 81 MG chewable tablet Chew 81 mg daily. 02/12/2019 02/10/2022 active atorvastatin (LIPITOR) 40 MG tablet Take 1 tablet (40 mg total) by mouth daily. 02/12/2019 active metoPROLOL SUCCINATE (TOPROL-XL) 50 MG 24 hr tablet Take 50 mg by mouth daily. 02/12/2019 active metoPROLOL SUCCINATE (TOPROL-XL) 50 MG 24 hr tablet Take 0.5 tablets (25 mg total) by mouth daily. 02/12/2019 active Metoprolol-HCTZ ER 50-12.5 MG Tablet SR 24 hr 02/10/2022 active FLUoxetine (PROzac) 20 MG capsule Take 1 capsule (20 mg total) by mouth. active Allergies Allergen Reaction Severity Comment Documented Date Source Statu s ERYTHROMYCIN HIVES 01/03/2019 [facility] active Problems Problem Status Onset Date Problem Type Date of Resoluti on Source Orthostatic hypertension active ProblemAct [facility] Macrocytosis without anemia active 2019-11-14 ProblemAct [facility] Post-void dribbling active 2021-08-27 ProblemAct [facility] Morbid obesity active 2021-08-[address] History of cholecystectomy active 2022-08-12 ProblemAct [facility] High alkaline phosphatase active 2020-11-06 ProblemAct [facility] Mixed anxiety depressive disorder active 2021-08-27 ProblemAct [facility] Hyperlipidemia active 2021-08-27 ProblemAct [facility] Indigestion active 2021-05-06 ProblemAct [facility] Tubular adenoma of colon active 2016-04-21 ProblemAct [facility] Parkinson's disease active 2019-02-15 ProblemAct [facility] Foreign body (FB) in soft tissue active 2024-08-30 ProblemAct [facility] STEMI (ST elevation myocardial infarction) active ProblemAct [facility] At risk for coronary artery disease active 2022-01-14 ProblemAct [facility] Class 2 obesity active 2021-08-27 ProblemAct [facility] Tear of meniscus of knee active 2021-08-27 ProblemAct [facility] Immunizations Vaccine Date Source Lot Number Status Tdap 12/22/2016 [facility] [id number] completed Encounters Encounter Type Encounter Reason Primary Diagnosis Location Date Ambulatory Parkinson's Disease Parkinson's Disease [facility] [place] 08/30/2024 Ambulatory Parkinson's Disease Parkinson's Disease [facility] [place] 01/26/2024 Ambulatory Parkinson's disease without dyskinesia, without mention of fluctuations Parkinson's disease without dyskinesia, without mention of fluctuations [facility] 11/17/2023 Ambulatory Parkinson's disease without dyskinesia, without mention of fluctuations Parkinson's disease without dyskinesia, without mention of fluctuations [facility] 03/30/2023 Ambulatory Parkinson's disease [facility] 10/13/2022 Ambulatory Parkinson's disease [facility] 08/12/2022 Ambulatory Parkinson's disease [facility] 02/10/2022 Ambulatory Parkinson's disease [facility] 08/27/2021 Ambulatory Parkinson's disease [facility] 04/01/2021 Care Team Organization Name Specialty Phone Email Start Date End Da te [facility] ANTON[facility] 08/30/2024 09/28/2024 [facility] DIONISIO ALVAREZ Primary [facility] 10/13/2022 09/28/2024 [facility] DIONISIO ALVAREZ Primary Care 08/12/2022 10/13/2022 [facility] REJI ATKINS Primary Care 02/10/202209/28 [facility] REJI ATKINS Primary Care 08/27/202102/10
--- OUTSIDE RECORDS SUMMARY | 2025-02-22 15:17 | XMS_ITS | Encounter Summary ---
Author Organization [facility] Address [address] [place] [address] Phone Care Team Providers Care Forestry Professor Name Role Phone Pcp, Unknown Primary Care Provider Unavailabl e Encounter Details Date Type Department Care Team (Late st Contact Info) Description 04/15/2019 Ancillary Orders [facility] [address] [place] [address] [address], [address] [place], [place] [id number] Haresh Aguillon MD [address] [place] [address] [email or web address] Social History Tobacco Use Types Packs/Day Years Used Date Smoking Tobacco: Never Assessed Comments Unknown Sex and Gender Information Value Date Recorded Sex Assigned at Not on file Legal Sex Female 8:28 AM EST Gender Identity Not on file Sexual Orientation Not on file documented as of this encounter Plan of Treatment Not on file documented as of this encounter Visit Diagnoses Not on filedocumented in this encounter Care Teams Forestry Professor Relationship Specialty Start Date End Date Pcp, Unknown PCP - General 04/15/19 documented as of this encounter Additional Source Comments The information contained in this document represents components of the legal health record. It is not the complete legal health record.[facility]
== END 2025-02-22 12:52 | disposition home or self-care (01) ==
LOC: HO.XRAY 12:51
PROVIDERS: PCP Internal Medicine; Visit Provider Physical Medicine & Rehabilitation
DX: M25.571 Pain in right ankle and joints of right foot (principal)
CPT/HCPCS: 73610

== ENCOUNTER → 2025-02-22 13:04 | Outpatient (BNV) | payer OTHER, SELFPAY | PROVIDERS: PCP Internal Medicine; Visit Provider Radiology Diagnostic Ultrasound | DX: M19.071 Primary osteoarthritis, right ankle and foot (principal) | CPT/HCPCS: 73610 ==